=== PATIENT | female | born 1990 | race Asian ===

== ENCOUNTER 2021-04-11 12:47 | Inpatient (IN) ==
[2021-04-11] MEDS ORDERED: LACTATED RINGER'S 1,000 ML IV PRN (13:16)
[2021-04-11] MEDS ORDERED: OXYTOCIN 30 UNITS/500 ML BAG IV PRN ×2 (13:16→19:23)
[2021-04-11 13:47] LABS: Hematocrit (blood only) 38.1 % (37-47); Hemoglobin 12.9 g/dL (12.0-16.0); Mean Corpuscular Hemoglobin 33.5 pg (25-34); Mean Corpuscular Hgb Conc 33.9 g/dL (32-36); Platelet Count 252 K/uL (130-400); RDW Coefficient of Variation 13.7 % (11.5-14.5); RDW Standard Deviation 49.2 fL (36.4-46.3); Red Blood Count 3.85 M/uL (4.2-5.4); White Blood Count 8.61 K/uL (4.8-10.8)
[2021-04-11] MEDS ORDERED: miSOPROStoL 200 MCG TAB PV SCH ×2 (14:30→18:00)
--- NOTE | 2021-04-11 15:41 | History & Physical Report ---
Date of Service April 11, 2021 Assessment & Plan (1) IUFD at 20 weeks or more of gestation: Plan: IUFD at 26 weeks gestation with fetus measuring 23 weeks with echogenic bowel and questionable abnormal umbilical vein. They would like autopsy if possible. I am going to check TORCH titers as well to be complete. we will begin cytotec 600 mcg every 6 hours until delivery epidural or IV pain meds when requested. Admission and Anticipated Discharge Date Admission Date: April 11, 2021 History of Present Illness Primary Care Provider: NO PCP Patient is a 30 yo female EDC 07/16/21 who presented to the office yesterday at 26 2/7 weeks gestation with complaint of no movement for several days. She was seen in the office and demise was confirmed by ultrasound. The infant was measuring at approx 23 weeks and in breech presentation with anhydramnios. Patient denies fever, chills, cramping,abdominal pain vaginal bleeding or increased vaginal discharge. Prior follow up anatomy scan showed echogenic bowel and an abnormal umbilical vein. She was to have an MFM consult to review these findings. cfDNA & AFP done at prior [facility] office were low risk. No history of genetic abnormalities in the family. She transferred to our care from [facility] (formerly [facility]) at 23 weeks gestation. Blood type O positive Allergies Allergy/AdvReac Type Severity Reaction Status Date / Time No Known Allergies Allergy Verified 04/10/21 09:57 Home Medications Medication Instructions Recorded Confirmed Type prenat.vits,iván,keo-vrdm-qsyyt 1 tab PO DAILY 04/11/21 04/11/21 History Patient History Medical History History of chicken pox Surgical History [place] teeth removed Family History Grandmother (Paternal) Cancer Colorectal cancer Grandfather (Maternal) Diabetes Denies family history of Ovarian cancer Prostate cancer Breast cancer Social History Smoking Status: Never smoker Second Hand Exposure: No; Hx Alcohol Use: No Hx Substance Use: No Preferred Language: Togolese Communication Ability: Effective Visual Impairment: No Limitations Hearing Ability: Normal Corporate Operations Compliance Manager Required: No Beliefs That Will Affect Care: None marital status: marital status details: Sunny Bassett (31) [phone] Current Living Situation: Spouse Current Living Situation Comment: lives with , no pets current occupational 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: employed 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 Other Information That Helps Us Care for You: No Feels Safe at Home: Yes Safety Concerns: Feels Safe At This Time Assistive Devices: None Review of Systems All systems reviewed & are unremarkable except as noted in HPI & below Physical Exam Constitutional: WD/WN, vitals as above Respiratory: normal respiratory effort, lungs clear to auscultation Cardiovascular: RRR, no murmur, no edema Psychiatric: A+Ox3, euthymic affect Genitourinary: OB Exam Abdomen: + fundal height Fundus: + relation to umbilicus (2 below ); not tender and + breech Manual OB Exam: + cervical dilation (closed), + cervical effacement 50% and + station high Results & Data ([facility]) Vital Signs (Past 12 Hours) Vital Signs Temp Pulse Resp BP 04/11/21 12:59 98.4 F 77 20 121/74 Coding Level of Care Code None Diagnoses IUFD at 20 weeks or more of gestation O36.4XX0
[2021-04-11] MEDS ORDERED: BUTORPHANOL TARTRATE 1 MG/ML VIAL IV PRN (17:01)
[2021-04-11] MEDS ORDERED: ePHEDrine sulfate 50 MG/ML AMP ONE (18:11)
[2021-04-11] MEDS ORDERED: SODIUM CHLORIDE 0.9% INJ 10 ML VIAL ONE (18:11)
[2021-04-11] MEDS ORDERED: BUPIVACAINE 0.25% 30 ML VIAL ONE (18:11)
[2021-04-11] MEDS ORDERED: fentaNYL citrate 100 MCG/2 ML VIAL ONE (18:11)
[2021-04-11] MEDS ORDERED: fentaNYL 2MCG/ML ROPIVACAINE 1.25MG/ML 100 ML BAG EPI ONE (18:17)
--- NOTE | 2021-04-11 18:51 | Anesthesiology Consultation ---
Date of Service April 11, 2021 Assessment & Plan Chart Review Chart Review: Acceptable Risk for Labor Epidural Consults Requested none ASA ASA2 Proposed Anesthesia Anesthesia Type: Labor Epidural Risk / Benefits Reviewed With: PT / POA / Parent / Guardian, Accepts Plan and Informed Consent Obtained History Height/Weight Height: 5 ft 5 in Weight: 56.699 kg Allergies Allergy/AdvReac Type Severity Reaction Status Date / Time No Known Allergies Allergy Verified 04/10/21 09:57 Medications Home Medications Medication Instructions Recorded Confirmed Last Taken prenat.vits,iván,[id number] 1 tab PO DAILY 04/11/21 04/11/21 04/10/21 08:00 Active Medications Generic Name Dose Route Start Last Admin Trade Name Freq PRN Reason Stop Dose Admin Butorphanol Tartrate 1 mg 04/11/21 17:01 04/11/21 17:11 Butorphanol Tartrate 1 Mg/Ml Vial IV 05/11/21 17:00 1 mg Q2HWA PRN Administration Pain Lactated Ringer's 1,000 mls @ 125 mls/hr 04/11/21 13:16 04/11/21 18:19 Lr IV 04/13/21 13:15 999 mls/hr .Q8H PRN Infusion L&D Protocol Protocol Past Medical History Medical History History of chicken pox Exercise / Class Metabolic Activity II 4-5 Yardwork/Stairs/Walk up hill Past Family History Family History Grandmother (Paternal) Cancer Colorectal cancer Grandfather (Maternal) Diabetes Denies family history of Ovarian cancer Prostate cancer Breast cancer Past Surgical History Surgical History [place] teeth removed Past Anesthesia History No Hx of Anesthesia Complications and No Family Hx of Anesthesia Complications History of PONV No Hx of PONV and No Hx of Motion Sickness Social History Smoking Status: Never smoker Hx Alcohol Use: No Hx Substance Use: No Physical Exam Vital Signs Last Vital Signs Temp 99.1 F 04/11/21 16:47 Pulse 79 04/11/21 18:45 Resp 20 04/11/21 16:47 BP 132/72 04/11/21 18:36 Pulse Ox 90 04/11/21 18:45 ENMT Mouth: no dentition abnormality Thyromental Distance: > or= 3.5 Finger Breadths Mallampati Class: II Neck normal visual inspection Respiratory normal respiratory effort Auscultation: lungs clear to auscultation bilaterally Cardiovascular Rate/Rhythm: regular rate and regular rhythm Testing Laboratory Results 04/11/21 13:40
[2021-04-11] MEDS ORDERED: HYDROCORTISONE ACETATE 25 MG SUPP PR PRN (19:23)
[2021-04-11] MEDS ORDERED: SUPERCREAM 0.870% 15 GM JAR EXT PRN (19:23)
[2021-04-11] MEDS ORDERED: BENZOCAINE 20% AER SPR 82.5 GM CAN EXT PRN (19:23)
[2021-04-11] MEDS ORDERED: ACETAMINOPHEN 325 MG TAB PO PRN (19:23)
[2021-04-11] MEDS ORDERED: oxyCODONE/ACETAMINOPHEN 5mg/325mg TAB PO PRN (19:23)
[2021-04-11] MEDS ORDERED: IBUPROFEN 600 MG TAB PO PRN (19:23)
--- NOTE | 2021-04-11 19:32 | Delivery Summary ---
Vaginal Delivery Summary Date of Service April 11, 2021 Vaginal Delivery Summary Patient is a 30-year-old 1 P0 female who presented to labor and delivery for Cytotec induction because of intrauterine demise. She received 1 dose of 600 mcg of Cytotec vaginally. She began having lower pelvic cramping for which she received IV Stadol. She requested epidural analgesia, and shortly after the epidural was placed she delivered the fetus still in the amniotic membranes along with the placenta. Placenta appeared to be intact. Post delivery bleeding was controlled with dilute Pitocin and fundal massage. There were no perineal tears or lacerations noted. Estimated blood loss is 150 cc. [facility] Vaginal Delivery Charge Delivery Type Details: GURVINDER
--- NOTE | 2021-04-11 21:33 | Anesthesia Procedure Note ---
Date of Service April 11, 2021 Anesthesia Post Epidural Note Vital Signs Vital Signs: Temp Pulse Resp BP Pulse Ox 99.1 F 67 20 116/61 95 04/11/21 16:47 04/11/21 20:51 04/11/21 20:37 04/11/21 20:51 04/11/21 19:20 Notes Mental Status: alert / awake / arousable and participated in evaluation Nausea / Vomiting: adequately controlled Pain: adequately controlled Airway Patency, RR, SpO2: stable & adequate BP & HR: stable & adequate Hydration State: stable & adequate Neuraxial Anesthesia: was administered and sensory block is resolving Anesthetic Complications: no major complications apparent and Pt Satisfied with anesthetic care Epidural: Removed without complications and With tip intact
--- NOTE | 2021-04-12 07:08 | Obstetrical Progress Note ---
Date of Service April 12, 2021 Assessment & Plan (1) IUFD at 20 weeks or more of gestation: recovering appropriately autopsy and TORCH titer results are pending discharge to home with follow up in 2 weeks. Day #:: 1 Subjective Ambulation: ambulating normally Voiding: no voiding problems Passing Gas:: Yes Diet Tolerance:: regular diet Lochia:: Small she slept and is rested this morning. having some cramping but this has been relieved with Motrin. Review of Systems All systems reviewed & are unremarkable except as noted in HPI & below Physical Exam Constitutional WD/WN, vitals as above Psychiatric A+Ox3, euthymic affect Genitourinary OB Exam Abdomen: + fundal height Fundus: + firm and + relation to umbilicus (16 weeks ) Results & Data ([facility]) Vital Signs (Past 12 Hours) Vital Signs Temp Pulse Resp BP Pulse Ox 04/12/21 03:28 97.7 F 18 04/12/21 03:20 57 L 97/54 L 04/11/21 22:25 98.4 F 65 18 121/70 04/11/21 21:37 18 04/11/21 21:35 65 116/71 04/11/21 21:07 98.4 F 18 04/11/21 20:51 67 116/61 04/11/21 20:37 62 20 110/57 L 04/11/21 20:22 66 20 115/59 L 04/11/21 20:07 69 20 108/55 L 04/11/21 19:52 75 18 119/56 L 04/11/21 19:37 80 20 129/58 L 04/11/21 19:22 105 H 20 133/64 04/11/21 19:20 86 95 04/11/21 19:19 116 H 170/77 H 04/11/21 19:16 115 H 136/80 04/11/21 19:15 75 93 04/11/21 19:14 84 128/72 87 L 04/11/21 19:12 75 127/67 04/11/21 19:10 71 129/66 91 04/11/21 19:08 71 136/66 04/11/21 19:06 80 124/69 04/11/21 19:05 68 91
[2021-04-12] MEDS ORDERED: PRENATAL VITAMIN 1 TAB PO SCH (08:00)
[2021-04-12] MEDS ORDERED: DIPHTHERIA/TETANUS/PERTUSSIS 0.5 ML SYR/VIAL IM ONE (09:00)
[2021-04-12] MEDS ORDERED: bisacodyL 5 MG TABEC PO SCH (20:00)
--- NOTE | 2021-04-16 14:08 | Discharge Summary (DS) ---
DATE OF ADMISSION: 04/11/2021 DATE OF DISCHARGE: 04/12/2021 PRINCIPAL DIAGNOSIS: Intrauterine demise at 26 weeks' gestation. PRINCIPAL PROCEDURE: Induction of labor with spontaneous vaginal delivery of demise. HISTORY: The patient is a 30-year-old 1, P0 female who has an EDC of 07/16/2021 who presente d to the office on 04/10 with a chief complaint of decreased movement and no movement ove r the last several days. She was confirmed to have an intrauterine demise with measurements at 22 and 5/7 weeks. Options were discussed with the patient and she was brought in on 04/11/2021 for Cytotec induction of labor. This was successful as the Cytotec was placed vaginally at 1500 hours an d she delivered at 1900 hours. The infant was delivered intact with the placenta. Her bleeding post was minimal, immediate bleeding was controlled with dilute Pitocin. She was watche d overnight to ensure that her bleeding was still continued to be minimal and she was sent home in go od condition the next morning with instructions to follow up in the office in approximately 2 weeks t o discuss autopsy findings and other laboratory results. Hemoglobin on her admission was 12.9, hemat ocrit 38.1, platelet count was 252,000. COVID testing was negative. TORCH studies are still pending as well as the autopsy final report. Job ID: [id number]
[2021-04-19 15:02] LABS: Herpes Simplex Ab IgG-1 2.61 INDEX; Herpes Simplex Ab IgG-2 <0.90 INDEX; Interpretation DNR; Rubella IgG 5.19 INDEX; Toxoplasma Gondii IgM <8.00 AU/mL
== END 2021-04-12 09:30 | disposition home or self-care (01) | DRG 807 ==
LOC: 4S1 12:47

== ENCOUNTER 2022-02-14 10:17 | Observation (INO) ==
--- NOTE | 2022-02-14 10:34 | History & Physical Report ---
Date of Service February 14, 2022 Assessment & Plan (1) Cervical funneling: Plan: Arrived after being seen at office. I called office to speak with provider who sent her over, Dr. Pineda. I was then Given an update of what had transpired prior to the patient being sent over to labor and delivery she had been seen for her anatomy ultrasound and the cervix appeared funneled and 1.7 cm in length patient also had a previous 22-week demise. A conversation between the provider in our office and [facility] maternal- medicine was made in the office and they recommended transfer hospital to hospital by ambulance Dr. Mao/Randi accepted. They recommended t ransfer from hospital to hospital by ambulance discussed this with the patient today. we will start an IV COVID testing will be performed I then spoke to the transfer center and the receiving facility [facility] and physicians and they do accept transfer ambulance was decided upon no further management aside from IV and transfer for patient patient is not currently milana she is not noticing any bleeding she has had some discharge for the last 2 weeks that is increased but is not out of normal for for her. I will defer exam now she had recent ultrasound and the decision on cerclage re ally will depend on the examination at [facility] I discussed with the patient the reasons for transfer risks of transfer and what a cerclage is History of Present Illness Primary Care Provider: NO PCP 20 weeks and a few days with cervical funneling noted in the office on anatomy ultrasound here to be stabilized for transfer Allergies Allergy/AdvReac Type Severity Reaction Status Date / Time No Known Allergies Allergy Verified 02/14/22 09:30 Home Medications Medication Instructions Recorded Confirmed Type prenat.vits,iván,[id number] 1 tab PO DAILY 04/11/21 02/14/22 History lactobacillus combination no.9 PO 11/12/21 02/14/22 History [Adult 50 Plus Probiotic] progesterone micronized 200 mg 200 mg VAGINAL QPM #30 cap 02/14/22 02/14/22 Rx capsule (Prometrium) Patient History Medical History History of chicken pox Surgical History [place] teeth removed Family History Grandmother (Paternal) Cancer Colorectal cancer Grandfather (Maternal) Diabetes Denies family history of Ovarian cancer Prostate cancer Breast cancer Social History (Updated 11/12/21 @ 13:08 by Alissa Sherman) Smoking Status: Never smoker Second Hand Exposure: No; Hx Alcohol Use: No Hx Substance Use: No Preferred Language: Lao Communication Ability: Effective Visual Impairment: No Limitations Hearing Ability: Normal Cattle Tester Required: No Beliefs That Will Affect Care: None marital status: marital status details: Sunny Bassett (31) [phone] Current Living Situation: Spouse Current Living Situation Comment: lives with , no pets current occupational status: employed 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
--- NOTE | 2022-02-19 10:58 | Discharge Summary ---
Date of Service February 19, 2022 Admission HPI Per Admitting Provider 20 weeks and a few days with cervical funneling noted in the office on anatomy ultrasound here to be stabilized for transfer Admission Exam (Per Admitting) Constitutional WD/WN, vitals as above well developed and well nourished Respiratory normal respiratory effort, lungs clear to auscultation normal respiratory effort Cardiovascular RRR, no murmur, no edema Gastrointestinal (Abdomen) normal bowel sounds, soft, nontender, no hepatosplenomegaly Hospital Course (1) Cervical funneling: Arrived after being seen at office. I called office to speak with provider who sent her over, Dr. Pineda. I was then Given an update of what had transpired prior to the patient being sent over to labor and delivery she had been seen for her anatomy ultrasound and the cervix appeared funneled and 1.7 cm in length patient also had a previous 22-week demise. A conversation between the provider in our office and [facility] maternal- medicine was made in the office and they recommended transfer hospital to hospital by ambulance Dr. Mao/Randi accepted. They recommended transfer from hospital to hospital by ambulance discussed this with the patient today. we will start an IV COVID testing will be performed I then spoke to the transfer center and the receiving facility [facility] and physicians and they do accept transfer ambulance was decided upon no further management aside from IV and transfer for patient patient is not currently milana she is not noticing any bleeding she has had some discharge for the last 2 weeks that is increased but is not out of normal for for her. I will defer exam now she had recent ultrasound and the decision on cerclage really will depend on the examination at [facility] I discussed with the patient the reasons for transfer risks of transfer and what a cerclage is Coding Level of Care Code None Diagnoses Cervical funneling N88.8
== END 2022-02-14 12:20 | disposition short-term general hospital (02) ==
LOC: OPB 10:17 → 4S1 10:18 → INTOOBSV 10:22
DX: N88.8 Other specified noninflammatory disorders of cervix uteri

== ENCOUNTER 2022-06-16 21:31 | Inpatient (IN) ==
[2022-06-16] MEDS ORDERED: OXYTOCIN 30 UNITS/500 ML BAG IV PRN (22:08)
[2022-06-16] MEDS ORDERED: LIDOCAINE 1% LOCAL 20 ML VIAL INFIL PRN (22:08)
[2022-06-16] MEDS: LACTATED RINGER'S 1,000 ML IV PRN ×2 (22:12→23:20)
[2022-06-16] MEDS ORDERED: SODIUM CHLORIDE 0.9% INJ 10 ML VIAL ONE (22:14)
[2022-06-16] MEDS ORDERED: ePHEDrine sulfate 50 MG/ML AMP ONE (22:14)
[2022-06-16] MEDS ORDERED: fentaNYL citrate 100 MCG/2 ML VIAL ONE (22:14)
[2022-06-16] MEDS ORDERED: BUPIVACAINE 0.25% 30 ML VIAL ONE (22:15)
[2022-06-16] MEDS ORDERED: LIDOCAINE 2%/EPINEPHRINE 1:200,000 20 ML SDV ONE (22:15)
[2022-06-16] MEDS ORDERED: fentaNYL 2MCG/ML ROPIVACAINE 1.25MG/ML 100 ML BAG EPI ONE (22:15)
[2022-06-16] MEDS ORDERED: NALOXONE HCL 0.4 MG/1 ML VIAL/CARP IV PRN (22:27)
[2022-06-16] MEDS ORDERED: NALBUPHINE HCL INJ 10 MG/ML AMP IV PRN (22:27)
[2022-06-16] MEDS ORDERED: ONDANSETRON INJ 2 MG/ML 2 ML VIAL IV PRN (22:27)
[2022-06-16] MEDS ORDERED: ePHEDrine sulfate 50 MG/ML AMP IV PRN (22:27)
[2022-06-16] MEDS ORDERED: fentaNYL 2MCG/ML ROPIVACAINE 1.25MG/ML 100 ML BAG EPI PRN (22:27)
[2022-06-16] MEDS ORDERED: NALOXONE HCL 1 MG in SODIUM CHLORIDE 0.9% 1000ML 1,000 ML IV PRN (22:27)
[2022-06-16] MEDS ORDERED: diphenhydrAMINE 50 MG/ML VIAL IV PRN (22:27)
--- NOTE | 2022-06-16 22:29 | Anesthesiology Consultation ---
Date of Service June 16, 2022 Assessment & Plan (1) Encounter for pre-operative examination: Chart Review Chart Review: Patient NOT seen in Pre Admission Testing and Acceptable Risk for Labor Epidural Consults Requested none History Allergies Allergy/AdvReac Type Severity Reaction Status Date / Time No Known Allergies Allergy Verified 06/13/22 10: Medications Home Medications Medication Instructions Recorded Confirmed Last Taken prenat.vits,iván,bnf-[id number] 1 tab PO DAILY 04/11/21 06/13/22 06/03/22 09:00 lactobacillus combination no.9 1 tab PO DAILY 11/12/21 06/13/22 06/03/22 09:00 [Adult 50 Plus Probiotic] breast pump #1 ea 04/25/22 06/13/22 Unknown Active Medications Generic Name Dose Route Start Last Admin Trade Name Freq PRN Reason Stop Dose Admin Lactated Ringer's 1,000 mls @ 125 mls/hr 06/16/22 22:08 06/16/22 22:12 Lr IV 06/18/22 22:07 999 mls/hr .Q8H PRN Administration L&D Protocol Protocol Past Medical History Medical History History of chicken pox Prior with demise demise at 22 weeks in 04/2021 Exercise / Class Metabolic Activity II 4-5 Yardwork/Stairs/Walk up hill Past Family History Family History Grandmother (Paternal) Cancer Colorectal cancer Grandfather (Maternal) Diabetes Denies family history of Ovarian cancer Prostate cancer Breast cancer Past Surgical History Surgical History [place] teeth removed Past Anesthesia History No Hx of Anesthesia Complications and No Family Hx of Anesthesia Complications History of PONV No Hx of PONV and No Hx of Motion Sickness Social History Smoking Status: Never smoker Hx Alcohol Use: No Hx Substance Use: No substance use type: does not use Physical Exam Vital Signs Last Vital Signs Temp 36.9 C 06/16/22 22: Pulse 70 06/16/22 21:50 Resp 18 06/16/22 22:22 BP 130/81 06/16/22 21:50
[2022-06-16 23:05] LABS: Hematocrit (blood only) 37.5 % (34.1-44.9); Hemoglobin 12.8 g/dl (12.0-16.0); Mean Corpuscular Hemoglobin 33.5 pg (25.0-34.0); Mean Corpuscular Hgb Conc 34.1 g/dL (32.0-36.0); Mean Corpuscular Volume 98.2 fL (80.0-100.0); Mean Platelet Volume 11.1 fL (9.4-12.3); Platelet Count 174 K/uL (130-400); RDW Coefficient of Variation 13.2 % (11.5-14.5); Red Blood Count 3.82 M/uL (3.93-5.22); White Blood Count 8.65 K/ul (4.8-10.8)
--- NOTE | 2022-06-17 03:27 | Delivery Summary ---
Vaginal Delivery Summary Date of Service June 17, 2022 Vaginal Delivery Summary and 2nd Degree LAC 31yo at 38+wks who came to L&D in active labor. Received epidural anesthesia and had srom, clear fluid. The patient dilated to complete and pushed for 15min to deliver a viable male infant Apgars 9 and 9 via over 2nd degree perineal laceration. Mouth and nose bulb suctioned at perineum. Loose nuchal x 1 reduced. Shoulders and body delivered with ease. was vigorous and crying at . Cord clamped at 30 seconds of life and infant to maternal abdomen where the cord was then doubly clamped and cut. Placenta delivered spontaneously and intact, three-vessel cord. Hemostasis achieved with dilute pitocin and uterine massage. Cervix and sulci intact. Laceration repaired in usual fashion with 3-0 vicryl. EBL 300 cc. Mother and baby stable in recovery. [facility] [place]ag[place] Delivery Charge Delivery Type Details: and 2nd Degree LAC
[2022-06-17] MEDS ORDERED: DIPHTHERIA/TETANUS/PERTUSSIS 0.5 ML SYR/VIAL IM ONE (03:38)
[2022-06-17] MEDS ORDERED: OXYTOCIN 20 UNITS in LACTATED RINGER'S 1,000 ML IV SCH (03:38)
[2022-06-17] MEDS ORDERED: oxyCODONE/ACETAMINOPHEN 5mg/325mg TAB PO PRN (03:38)
[2022-06-17] MEDS ORDERED: HYDROCORTISONE ACETATE 25 MG SUPP PR PRN (03:38)
[2022-06-17] MEDS ORDERED: ACETAMINOPHEN 325 MG TAB PO PRN (03:38)
[2022-06-17] MEDS ORDERED: BENZOCAINE 20% AER SPR 82.5 GM CAN EXT PRN (03:38)
[2022-06-17] MEDS ORDERED: OXYTOCIN 30 UNITS/500 ML BAG IV PRN (03:38)
[2022-06-17] MEDS: LACTATED RINGER'S 1,000 ML IV SCH ×3 (05:42→22:11)
--- NOTE | 2022-06-17 07:49 | Anesthesia Procedure Note ---
Date of Service June 17, 2022 Anesthesia Post Epidural Note Vital Signs Vital Signs: Temp Pulse Resp BP Pulse Ox 36.8 C 77 18 115/59 L 93 06/17/22 03:25 06/17/22 05:25 06/17/22 04:55 06/17/22 05:25 06/17/22 03:04 Pain Intensity Lower Abdomen: Pain Intensity: 0 Bilateral Episiotomy/Laceration: Pain Intensity: 0 Notes Mental Status: alert / awake / arousable Nausea / Vomiting: adequately controlled Pain: adequately controlled Airway Patency, RR, SpO2: stable & adequate BP & HR: stable & adequate Hydration State: stable & adequate Neuraxial Anesthesia: was administered and sensory block is resolving Anesthetic Complications: no major complications apparent and Pt Satisfied with anesthetic care Epidural: Removed without complications and With tip intact
[2022-06-17] MEDS: PRENATAL VITAMIN 1 TAB PO SCH (08:31)
[2022-06-17] MEDS: DOCUSATE SODIUM 100 MG CAP PO SCH ×2 (08:31→19:51)
[2022-06-17] MEDS: IBUPROFEN 600 MG TAB PO PRN ×3 (08:53→19:52)
[2022-06-18] MEDS: IBUPROFEN 600 MG TAB PO PRN ×4 (00:23→20:18)
--- NOTE | 2022-06-18 06:19 | Obstetrical Progress Note ---
Date of Service June 18, 2022 Assessment & Plan (1) Encounter for supervision of normal intrauterine in primigravida, antepartum: Plan s/p PPD#1: Vital signs reviewed and WNL, Tmax 37.1 O+, GBS negative, Rubella immune Hemoglobin 12.8 (06/18), repeat H&H ordered for today Continue regular diet, treat pain as needed Encourage ambulation Discussed discharge plan- Pt would like more time to work on . Will have d/c prepped Admission and Anticipated Discharge Date Admission Date: June 16, 2022 Supervising Physician Co-Signing Physician Notes Resident Physician Supervision Note: I interviewed and examined the patient. Discussed with Dr. Hunter and agree with findings and plan as documented in the note. Any exceptions or clarifications are listed here: Pt seen and examined, doing well but would like more time to work on . Will manfred up D/C plans but not place order unless pt decides she would like to go home later today. Anticipate d/c tomorrow if not already home. No H&H ordered so added a check. Documented By: Lidia Pineda MD, FACOG Subjective Tameka is a 31 y/o female who is PPD #1 following vaginal delivery at 38 1/7 weeks. Her was complicated by placement of cerclage (02/2022) which was successfully removed (06/04/22). She reports feeling well overall this morning. Notes some abdominal cramping and feeling generally sore, but pain well managed on analgesics. Voiding without issue. Tolerating meals overnight and able to ambulate some. Endorses passing gas. Has some persistent lochia, notes some improvement so far today. Currently breast feeding. Review of Systems Constitutional: no fever, no chills and no sweats Respiratory: no cough, no dyspnea and no wheezing Cardiovascular: no chest pain, no palpitations and no calf pain Genitourinary: no dysuria Neurologic: no headache(s) Physical Exam Constitutional: WD/WN, vitals as above no acute distress Respiratory: no respiratory distress Auscultation: lungs clear to auscultation bilaterally; no rales, no rhonchi and no wheezes Cardiovascular: RRR, no murmur, no edema Extremities: no calf tenderness and no edema Negative Grabiel's sign bilaterally. Genitourinary: Uterine fundus firm, palpable below the umbilicus. Results & Data ([facility]) Vital Signs (Past 12 Hours) Vital Signs Temp Pulse Resp BP Pulse Ox O2 Del Method 06/18/22 00:15 37.1 C 72 18 113/73 06/17/22 19:54 36.8 C 87 16 106/73 97 Room Air Resident Activity Tracking Resident Involvement: Resident Care Provided Care Provided: OB Delivery
[2022-06-18 07:25] LABS: Hematocrit (blood only) 31.1 % (34.1-44.9); Hemoglobin 10.5 g/dl (12.0-16.0)
[2022-06-18] MEDS: PRENATAL VITAMIN 1 TAB PO SCH (08:01)
[2022-06-18] MEDS: DOCUSATE SODIUM 100 MG CAP PO SCH ×2 (08:01→20:18)
[2022-06-19] MEDS ORDERED: bisacodyL 10 MG SUPP PR PRN
--- NOTE | 2022-06-19 06:21 | Obstetrical Progress Note ---
Date of Service June 19, 2022 Assessment & Plan (1) Encounter for supervision of normal intrauterine in primigravida, antepartum: Plan s/p PPD#2: Vital signs reviewed and WNL, Tmax 37.1 O+, GBS negative, Rubella immune Hemoglobin 12.8 (06/16), 10.5 (06/18) Continue regular diet, treat pain as needed Encourage ambulation Plan to d/c today, follow up in office for 6 week visit Admission and Anticipated Discharge Date Admission Date: June 16, 2022 Supervising Physician Co-Signing Physician Notes Resident Physician Supervision Note: I was present with [Stephanie] during the history and exam. I discussed the case with the resident and agree with the findings and plan as documented in the note. Any exceptions or clarifications are listed here: [None] Documented By: Funmi Mason MD, FACOG Subjective Tameka is a 31 y/o female who is PPD #2 following vaginal delivery at 38 1/7 weeks. Her was complicated by placement of cerclage (02/2022) which was successfully removed (06/04/22). She reports feeling well overall this morning. States that pain well managed on analgesics, still some vaginal soreness. Voiding without issue. Tolerating meals overnight and able to ambulate some. Endorses passing gas. Has persistent lochia with some improvement. Currently breast feeding, notes that progress is improving after time with performance improvement consultant yesterday. Review of Systems Constitutional: no fever, no chills and no sweats Respiratory: no cough, no dyspnea and no wheezing Cardiovascular: no chest pain, no palpitations and no calf pain Genitourinary: no dysuria Neurologic: no headache(s) Physical Exam Constitutional: WD/WN, vitals as above no acute distress Respiratory: no respiratory distress Auscultation: lungs clear to auscultation bilaterally; no rales, no rhonchi and no wheezes Cardiovascular: RRR, no murmur, no edema Extremities: no calf tenderness and no edema Negative Grabiel's sign bilaterally. Genitourinary: Uterine fundus firm, palpable below the umbilicus. Results & Data ([facility]) Vital Signs (Past 12 Hours) Vital Signs Temp Pulse Resp BP Pulse Ox O2 Del Method 06/18/22 23:20 37.0 C 66 18 109/72 97 Room Air 06/18/22 19:50 37.2 C 81 18 108/71 96 Room Air Resident Activity Tracking Resident Involvement: Resident Care Provided Care Provided: OB Delivery
[2022-06-19] MEDS: IBUPROFEN 600 MG TAB PO PRN (07:48)
[2022-06-19] MEDS: PRENATAL VITAMIN 1 TAB PO SCH (07:48)
[2022-06-19] MEDS: DOCUSATE SODIUM 100 MG CAP PO SCH (07:48)
== END 2022-06-19 10:29 | disposition home or self-care (01) | DRG 807 ==
LOC: OPB 21:31 → 4S1 21:32 → 4E2 06-17 06:26